=== PATIENT | female | born 1975 | race Two or more races ===

== ENCOUNTER 2023-01-01 04:28 | Inpatient (IN) | payer MEDICAID, OTHER ==
[~2023-01-01] VITALS: Ht 149.9 cm; Wt 76.4 kg
[2023-01-01 05:04] LABS: Urine Blood TRACE /uL (Negative); Urine Specific Gravity 1.021 (1.001-1.035)
[2023-01-01 05:07] LABS: Basophils # (auto) 0.1 10 ^3/uL (0-0.2); Basophils % (auto) 0.6 % (0.0-2.0); Eosinophils # (auto) 0.1 10 ^3/uL (0-0.8); Eosinophils % (auto) 0.8 % (0.0-7.0); Hematocrit 35.5 % (36.0-46.0); Hemoglobin 12.5 g/dL (12.2-16.2); Lymphocytes # (auto) 0.9 10 ^3/uL (0.4-5.4); Lymphocytes % (auto) 8.4 % (10.0-50.0); Mean Corpuscular Hemoglobin 32.2 pg (28.0-32.0); Mean Corpuscular Hgb Conc. 35.1 g/dL (32.0-36.0); Mean Corpuscular Volume 91.6 fL (80.0-100.0); Monocytes # (auto) 0.6 10 ^3/uL (0-1.3); Monocytes % (auto) 5.4 % (0.0-12.0); Neutrophils # (auto) 9.1 10 ^3/uL (1.6-8.6); Neutrophils % (auto) 84.8 % (37.0-80.0); Red Blood Cells 3.88 10^6/uL (4.0-5.20); Red Cell Distribution Width 13.7 % (11.8-14.3); White Blood Cell 10.7 10^3/uL (4.4-10.8)
[2023-01-01 05:48] LABS: Albumin 3.7 g/dL (3.4-5.0); Calcium 8.6 mg/dL (8.5-10.1); Potassium 3.7 mmol/L (3.5-5.1)
[2023-01-01 05:51] LABS: BUN/Creatinine Ratio 21.7
[2023-01-01 05:53] LABS: Bilirubin, Total 0.6 mg/dL (0.2-1.0); Total Protein 7.3 g/dL (6.4-8.2)
[2023-01-01] MEDS ORDERED: cefTRIAXone 1GM/50ML D5W 50 ML IV ONE (10:15)
[2023-01-01] MEDS ORDERED: metroNIDAZOLE 500MG/100ML 100 ML IV ONE (10:15)
[2023-01-01 11:26] LABS: INR 1.08 (0.9-1.15); Partial Thromboplastin Time 31.4 sec (24.6-33.4)
[2023-01-01] MEDS ORDERED: PANTOPRAZOLE 40 MG/10 ML VIAL INJ IV ONE (11:45)
[2023-01-01] MEDS ORDERED: HYDROcodone-ACET 5/325MG TAB PO PRN (11:45)
[2023-01-01 12:07] LABS: Cholesterol 125 mg/dL (< 200); Triglycerides 91 mg/dL (< 150)
[2023-01-01 12:10] LABS: HDL Cholesterol 47 mg/dL (40-59); LDL Cholesterol 67 mg/dL (< 100)
[2023-01-02] MEDS: metroNIDAZOLE 500MG/100ML 100 ML IV SCH ×2 (02:40→06:00)
[2023-01-02] MEDS: D5W/SOD CHL 0.45%/KCL 20MEQ 1,000 ML IV SCH ×4 (02:55→20:37)
[2023-01-02] MEDS: MORPHINE SULFATE INJ 2 MG/ml SYRG IV PRN ×2 (03:13→07:39)
[2023-01-02] MEDS: ONDANSETRON HCL 4 MG/2 ML VIAL IV PRN ×2 (03:13→07:39)
[2023-01-02] MEDS: LACTATED RINGER'S 1,000 ML IV SCH ×2 (05:00→05:01)
[2023-01-02 06:39] LABS: Basophils # (auto) 0 10 ^3/uL (0-0.2); Basophils % (auto) 0.2 % (0.0-2.0); Eosinophils # (auto) 0.1 10 ^3/uL (0-0.8); Eosinophils % (auto) 0.6 % (0.0-7.0); Hematocrit 30.8 % (36.0-46.0); Hemoglobin 10.7 g/dL (12.2-16.2); Lymphocytes # (auto) 1.6 10 ^3/uL (0.4-5.4); Lymphocytes % (auto) 14.3 % (10.0-50.0); Mean Corpuscular Hemoglobin 31.8 pg (28.0-32.0); Mean Corpuscular Hgb Conc. 34.8 g/dL (32.0-36.0); Mean Corpuscular Volume 91.4 fL (80.0-100.0); Monocytes # (auto) 0.8 10 ^3/uL (0-1.3); Neutrophils # (auto) 8.9 10 ^3/uL (1.6-8.6); Neutrophils % (auto) 77.9 % (37.0-80.0); Nucleated Red Blood Cells % 0.1 %; Red Blood Cells 3.37 10^6/uL (4.0-5.20); Red Cell Distribution Width 13.7 % (11.8-14.3); White Blood Cell 11.4 10^3/uL (4.4-10.8)
[2023-01-02 06:53] LABS: Potassium 3.5 mmol/L (3.5-5.1)
[2023-01-02 07:01] LABS: Albumin 3.2 g/dL (3.4-5.0); BUN/Creatinine Ratio 31.9; Bilirubin, Total 0.8 mg/dL (0.2-1.0); Calcium 8.5 mg/dL (8.5-10.1); Total Protein 6.5 g/dL (6.4-8.2)
[2023-01-02] MEDS: ACETAMINOPHEN 325 MG TAB PO PRN (07:10)
[2023-01-02] MEDS ORDERED: cefTRIAXone 1GM/50ML D5W 50 ML IV SCH (09:00)
[2023-01-02] MEDS ORDERED: PANTOPRAZOLE 40 MG/10 ML VIAL INJ IV SCH (10:00)
[2023-01-02] MEDS ORDERED: LIDOCAINE HCL 2 %PF INJ 10ML AMP IJ ONE (11:18)
[2023-01-02] MEDS ORDERED: MEPERIDINE HCL (50 MG/ML) 1 ML VIAL ONE (11:20)
[2023-01-02] MEDS ORDERED: fentaNYL CITRATE 100 MCG/2 ML VL ONE (11:20)
[2023-01-02] MEDS ORDERED: LIDOCAINE 2% JELLY 11ml (GLYDO) ONE (11:20)
[2023-01-02] MEDS ORDERED: MIDAZOLAM HCL 2MG/2ML 2ml VIAL (1mg/ml) ONE (11:21)
[2023-01-02] MEDS ORDERED: PROPOFOL 10 MG/ML 20 ML IV ONE (11:21)
[2023-01-02] MEDS ORDERED: SODIUM CHLORIDE LOCK 10 ML ONE (11:21)
[2023-01-02] MEDS ORDERED: ROCURONIUM 10MG/ML 10ML VIAL IV ONE (11:21)
[2023-01-02] MEDS ORDERED: DexAMETHasone SOD PHOS 10MG/1ML VIAL INJ ONE (11:21)
[2023-01-02] MEDS ORDERED: GLYCOPYRROLATE 0.2 MG/ML 1ML VIAL ONE (11:21)
[2023-01-02] MEDS ORDERED: NEOSTIGMINE 1 MG/ML INJ (10mg/10ML VIAL) ONE (11:21)
[2023-01-02] MEDS ORDERED: HYDROmorphone HCL 2 MG/ML VL/or syr IV PRN ×2 (12:00)
[2023-01-02] MEDS ORDERED: MORPHINE SULFATE INJ 2 MG/ml SYRG IV PRN ×2 (12:00→12:15)
[2023-01-02] MEDS ORDERED: METOCLOPRAMIDE HCL 5MG/ml INJ 2ml VIAL IV PRN (12:00)
[2023-01-02] MEDS ORDERED: SUGAMMADEX 200mg/2ml Vial (100MG/ML) IV ONE (12:05)
[2023-01-02] MEDS ORDERED: ONDANSETRON HCL 4 MG/2 ML VIAL IV PRN (12:15)
[2023-01-02] MEDS ORDERED: ACETAMINOPHEN/CODEINE#3 (300/30mg) TAB PO PRN (12:15)
[2023-01-02] MEDS ORDERED: HYDROmorphone HCL 2 MG/ML VL/or syr IV ONE ×3 (12:35→12:55)
[2023-01-02] MEDS ORDERED: metroNIDAZOLE 500MG/100ML 100 ML IV SCH (14:00)
[2023-01-02] MEDS: ceFAZolin 2 GM in D5W 5% 100 ML IV SCH ×2 (15:00→22:27)
[2023-01-02 17:43] VITALS: BP 92/60
[2023-01-02 17:50] VITALS: BP 92/60
[2023-01-02 20:00] VITALS: BP 126/68
[2023-01-02 22:00] VITALS: BP 126/68
[2023-01-03] MEDS: metroNIDAZOLE 500MG/100ML 100 ML IV SCH ×3 (03:39→20:13)
[2023-01-03] MEDS: D5W/SOD CHL 0.45%/KCL 20MEQ 1,000 ML IV SCH ×3 (04:55→21:35)
[2023-01-03 05:00] VITALS: BP 116/68
[2023-01-03] MEDS: ceFAZolin 2 GM in D5W 5% 100 ML IV SCH ×3 (06:54→21:46)
[2023-01-03 09:43] VITALS: BP 108/64
[2023-01-03] MEDS: PANTOPRAZOLE 40 MG/10 ML VIAL INJ IV SCH (10:20)
[2023-01-03 12:53] VITALS: BP 105/55
[2023-01-03 17:13] VITALS: BP 127/95
[2023-01-03 20:00] VITALS: BP 110/64
[2023-01-03 22:00] VITALS: BP 110/64
[2023-01-04] MEDS: ACETAMINOPHEN 325 MG TAB PO PRN (02:58)
[2023-01-04] MEDS: D5W/SOD CHL 0.45%/KCL 20MEQ 1,000 ML IV SCH (03:40)
[2023-01-04] MEDS: metroNIDAZOLE 500MG/100ML 100 ML IV SCH ×2 (03:43→12:02)
[2023-01-04 05:00] VITALS: BP 116/62
[2023-01-04] MEDS: ceFAZolin 2 GM in D5W 5% 100 ML IV SCH (05:48)
[2023-01-04 08:00] VITALS: BP 123/75
[2023-01-04] MEDS: PANTOPRAZOLE 40 MG/10 ML VIAL INJ IV SCH (10:16)
[2023-01-04] MEDS ORDERED: ACET325T10 PO (11:35)
[2023-01-04 12:00] VITALS: BP 120/73
== END 2023-01-04 14:20 | disposition home or self-care (01) | DRG 234 ==
LOC: ER 04:28 → OVERFLOW 11:37 → CENTRAL 01-02 17:34
PROVIDERS: ADMIT Registered Nurse; ATTEND Student in an Organized Health Care Education/Training Program
PROC: 0DTJ4ZZ Resection of Appendix, Percutaneous Endoscopic Approach (ICD-10-PCS; principal; 2023-01-02 11:36)
DX: K35.80 Unspecified acute appendicitis (principal); K38.1 Appendicular concretions; Z68.31 Body mass index [BMI] 31.0-31.9, adult; Z20.822 Contact with and (suspected) exposure to COVID-19
CPT/HCPCS: 36415; 74176; 80053; 80061; 81003; 83036; 83605; 84443; 84702; 85025; 85610; 85730; 86850; 86900; 86901; 87040; 87426; 96365; 96367; 96368; 96375; C9113; G0378; J0690; J0696; J1100; J2250; J2405; J2704; J3490; J7060